=== PATIENT | female | born 1960 | race African-American/Black ===

== ENCOUNTER → 2019-02-08 | Day surgery (SDC) | payer MEDICARE ==
[~2019-02-08] MED LIST: AMLO10TA8 PO; CARV12.511 PO; DARBEPOETIN ALFA IN POLYSORBAT SQ; DEXAMETHASONE SOD PHOS 4 MG/ML VIAL ONE; HEPARIN SODIUM 5,000 UNIT in IV NORMAL SALINE 500ML BAG 500 ML IRR ONE; HEPARIN for IV BOLUS 10,000 UNIT/10 ML VIAL. ONE; HYDROmorphone 2 MG/ML VIAL IV PRN; INSU100C SQ; INSU100I13 SQ; IV NORMAL SALINE 1000ML BAG 1,000 ML IV SCH; IV RINGERS,LACTATED 1000ML 1,000 ML IV SCH; LIDOCAINE 1% 20 ML VIAL. ONE; LIDOCAINE 1% PF 2 ML VIAL. ID PRN; LIDOCAINE 2% PF 5 ML VIAL. ONE; MIDAZOLAM HCL/PF 2 MG/2 ML VIAL. ONE; MORPHINE SULFATE 2 MG/ML VIAL. IV PRN; ONDANSETRON PF 4 MG/2 ML VIAL. IV PRN; ONDANSETRON PF 4 MG/2 ML VIAL. ONE; PAPAVERINE 60 MG/2 ML VIAL FOR OR ONLY. ONE; POVIDONE-IODINE 10% TOPICAL OINTMENT 28GM TUBE. TP ONE; PROCHLORPERAZINE 10 MG/2 ML VIAL. IV PRN; PROPOFOL 20 ML IV ONE; SCOPOLAMINE 1.5MG PATCH. TD SCH; SURGICEL FIBRILLAR 1X2 EACH. ONE; THROMBIN TOPICAL 5,000 UNIT VIAL. ONE; VANC500V PO; ceFAZolin 2GM PREMIX 2 GM/50 ML BAG IV ONE; fentaNYL PF VIAL 100 MCG/2 ML VIAL IV PRN; fentaNYL PF VIAL 100 MCG/2 ML VIAL ONE
[2019-02-08 10:09] LABS: BASO # 0.1 x10^3/uL (0.0-0.2); BASO % 1 % (0-3); EOS # 0.4 x10^3/uL (0.0-0.7); EOS % 5 % (0-3); HEMATOCRIT 23.4 % (36.0-47.0); HEMOGLOBIN 7.2 g/dL (12.0-15.5); LYMPH # 0.9 x10^3/uL (1.0-4.8); LYMPH % 12 % (24-48); MEAN CORPUSCULAR HEMOGLOBIN 23 pg (25-35); MEAN CORPUSCULAR HGB CONC 31 g/dL (31-37); MEAN CORPUSCULAR VOLUME 75 fL (79-100); MONO # 0.4 x10^3/uL (0.0-1.1); MONO % 5 % (0-9); NEUT % 78 % (31-73); PLATELET COUNT 219 x10^3/uL (140-400); RED CELL DISTRIBUTION WIDTH 14.2 % (11.5-14.5); WHITE BLOOD COUNT 7.7 x10^3/uL (4.0-11.0)
[2019-02-08 10:30] LABS: CALCIUM 7.9 mg/dL (8.5-10.1); CREATININE 2.8 mg/dL (0.6-1.0); GFR 21.2; POTASSIUM 3.6 mmol/L (3.5-5.1)
--- NOTE | 2019-02-08 14:49 | DISCH ---
DISCHARGE INSTRUCTIONS Condition on Discharge Condition on Discharge: Stable Activity After Discharge Activity Instructions for Disc: Activity as tolerated Bathing Instructions: Shower-keep dressing dry (Ok to shower over incisions in 2 days) Driving Instructions after Dis: Do not drive Weight Bearing Status after Di: As tolerated Diet after Discharge Diet after Discharge: Renal Dialysis, Diabetic No Calorie Level Wound Incision Care Wound/Incision Care: Ice to area for comfort, Change dressing (keep dressings clean and dry. Keep incisions clean and dry) Checks after Discharge Checks after discharge: Check blood press - daily, Check blood sugar, ac/hs, Weigh Yourself Daily Contacting the DR. after DC Call your doctor for: If your condition worsens (fever > 100, odor, drainage, increasing redness from incisions) Follow-Up Follow up with: Follow up with DR. Moreno 03/07/19 at 1111. [address], IMANI lisa Treatment/Equipment after DC Adaptive Equipment Issued: Wheelchair Discharge Respiratory Equipmen: Oxygen SARAH SERRATO Feb 08, 2019 14:49
--- NOTE | 2019-02-08 14:56 | PDOC ---
BRIEF OPERATIVE NOTE Date: Feb 08, 2019 Pre-Op Diagnosis End stage renal disease on dialysis Post-Op Diagnosis End stage renal disease on dialysis Procedure Performed Right upper arm arteriovenous graft placement Surgeon Cholo Moreno MD Health Coach BRIAN Crandall Anesthesia Type: General Blood Loss 50mL Specimens Obtained None Complications None Operative Note See detailed op note SARAH SERRATO Feb 08, 2019 14:56
[2019-02-08 15:45] VITALS: BP 168/70
--- NOTE | 2019-02-08 16:32 | OP ---
DATE OF SURGERY: 02/08/2019 PREOPERATIVE DIAGNOSIS: End-stage renal disease requiring hemodialysis. POSTOPERATIVE DIAGNOSIS: End-stage renal disease requiring hemodialysis. OPERATION PERFORMED: Placement of right arm loop arteriovenous shunt using tapered 4-7 Propaten [place] graft. SURGEON: Anjana Moreno M.D. WILDLIFE PROTECTOR: BRIAN Crandall. Danya was required because of the patient's body habitus and the need for an tourist information assistant for retraction, aid and completing the anastomosis. Without a qualified tourist information assistant, the procedure would have taken much longer and the outcome may not have been as satisfactory. ANESTHESIA: General. INDICATIONS: This is a 58-year-old female with end-stage renal disease. She has had a left hemisphere stroke with right hemiparesis. At first, I was unable to expose the upper arm for consideration of placement of the graft and therefore we discussed placement of the graft in the left arm, which is her nonparalyzed arm; however, when we got into the operating room and after anesthesia, the arm was able to be abducted such that an upper arm graft could be placed and therefore that was performed. This will be the best for obvious reasons. The loop graft has an anterior component, which would be accessible for dialysis. She does, however, have to consent forms and has been consented for both right and left arm. OPERATIVE FINDINGS: The patient had an excellent deep brachial vein. The brachial artery was of adequate caliber, but had some concentric calcification. Following placement of the shunt, there was excellent flow through the graft, which again is oriented in a horseshoe configuration with both the arterial and venous anastomoses in the upper axilla. DESCRIPTION OF PROCEDURE: The patient's right arm was prepped and draped and retracted and abducted for positioning. The patient's arm was prepped and draped and a timeout was called. An incision was made in the axilla and the brachial artery and deep brachial veins were both dissected and the findings above. A 4-7 graft was then tunneled in a subcutaneous fashion with the tapered in to be sutured to the brachial artery and the large end to be sutured to the deep brachial vein. The patient was given 3000 units of heparin. The tunneling was done with the aid of a most curved tunneler. After positioning of the graft into the subcutaneous tunnel, the brachial artery was occluded proximally and distally. Because of the calcification, clamps had to be used. An arteriotomy was made in the anterior surface then tapered portion of the graft was sutured end-to-side using HS-7 Prolene. After completing anastomosis, there was less than optimal flow through the graft. Therefore, the anastomosis was taken down and redone. Following this, there was pulsatile flow through the graft. The graft was irrigated, retrograded with heparinized saline and clamped at the horseshoe portion where there was a counter incision. The large end of the graft was then sutured end-to-side to the deep brachial vein. A venotomy was made and the graft sutured end-to-side with HS-7 Prolene. Prior to completing the anastomosis, the graft was flushed appropriately. Flow was then restored. Wounds were then irrigated and closed in layers with absorbable suture, the skin with intracuticular Vicryl proximally. A small counter incision just above the elbow was closed with a running 4-0 nylon. Sterile dressings were applied. The patient tolerated the procedure well. All sponge and needle counts were reported as correct. ESTIMATED BLOOD LOSS: 50 mL. DRAINS: None. SPECIMEN: None. ANJANA MORENO MD DR: YAMINI/delroy JOB#: [id number] / [id number]
== END ==
LOC: SURG 08:20
PROVIDERS: ATTEND Surgery
DX: E11.22 Type 2 diabetes mellitus with diabetic chronic kidney disease (principal); N18.6 End stage renal disease; Z86.73 Personal history of transient ischemic attack (TIA), and cerebral infarction without residual deficits; Z98.890 Other specified postprocedural states; Z99.2 Dependence on renal dialysis; Z90.710 Acquired absence of both cervix and uterus; Z79.84 Long term (current) use of oral hypoglycemic drugs
CPT/HCPCS: 36415; 36830; 80048; 85025; A7015; C1768; J0690; J0696; J1100; J1644; J2001; J2405; J2704; J3010; J7040; J2250; J2440

== ENCOUNTER 2019-02-13 11:45 | Emergency (ER) | payer MEDICARE ==
[~2019-02-13] VITALS: Ht 165.1 cm; Wt 100.7 kg
[~2019-02-13 11:45] MED LIST changes: -DEXAMETHASONE SOD PHOS 4 MG/ML VIAL ONE; -HEPARIN SODIUM 5,000 UNIT in IV NORMAL SALINE 500ML BAG 500 ML IRR ONE; -HEPARIN for IV BOLUS 10,000 UNIT/10 ML VIAL. ONE; -HYDROmorphone 2 MG/ML VIAL IV PRN; -IV NORMAL SALINE 1000ML BAG 1,000 ML IV SCH; -IV RINGERS,LACTATED 1000ML 1,000 ML IV SCH; -LIDOCAINE 1% 20 ML VIAL. ONE; -LIDOCAINE 1% PF 2 ML VIAL. ID PRN; -LIDOCAINE 2% PF 5 ML VIAL. ONE; -MIDAZOLAM HCL/PF 2 MG/2 ML VIAL. ONE; -MORPHINE SULFATE 2 MG/ML VIAL. IV PRN; -ONDANSETRON PF 4 MG/2 ML VIAL. IV PRN; -ONDANSETRON PF 4 MG/2 ML VIAL. ONE; -PAPAVERINE 60 MG/2 ML VIAL FOR OR ONLY. ONE; -POVIDONE-IODINE 10% TOPICAL OINTMENT 28GM TUBE. TP ONE; -PROCHLORPERAZINE 10 MG/2 ML VIAL. IV PRN; -PROPOFOL 20 ML IV ONE; -SCOPOLAMINE 1.5MG PATCH. TD SCH; -SURGICEL FIBRILLAR 1X2 EACH. ONE; -THROMBIN TOPICAL 5,000 UNIT VIAL. ONE; -ceFAZolin 2GM PREMIX 2 GM/50 ML BAG IV ONE; -fentaNYL PF VIAL 100 MCG/2 ML VIAL IV PRN; -fentaNYL PF VIAL 100 MCG/2 ML VIAL ONE
--- NOTE | 2019-02-13 12:22 | PHYS DOC ---
Past Medical History Past Medical History: Diabetes-Type II, High Cholesterol, Hypertension, Stroke Past Surgical History: Other Additional Past Surgical Histo: BILATERAL 5TH TOE AMPUTATION Alcohol Use: None Drug Use: None Adult General Chief Complaint Chief Complaint: LOWER EXT PAIN HPI HPI Patient is a 58 year old with a history of end-stage renal disease on dialysis presents to ED complaining of right hip pain. Patient is wheelchair-bound. Patient has a history of chronic lymphedema and wounds to right foot. Patient states she is able to bear weight. Patient has home healthcare at home to dress and take care of the wound. States she was standing to change herself and she fell down into the chair and injured her right hip. Describes the pain as sharp. Rates the pain as 4 out of 10. Patient was just released 2 days ago from the hospital for wound treatment. Patient states her wound has been improving. No change in drainage. Denies fever, chills, nausea/vomiting, weakness, bowel/bladder changes, paresthesias, chest pain, shortness of breath, head/neck injury, symptoms prior to fall. Review of Systems Review of Systems Constitutional: Denies fever or chills [] Eyes: Denies change in visual acuity, redness, or eye pain [] HENT: Denies nasal congestion or sore throat [] Respiratory: Denies cough or shortness of breath [] Cardiovascular: No additional information not addressed in HPI [] GI: Denies abdominal pain, nausea, vomiting, bloody stools or diarrhea [] : Denies dysuria or hematuria [] Musculoskeletal: Complains of hip pain. Denies back pain. Integument: Denies rash or skin lesions [] Neurologic: Denies headache, focal weakness or sensory changes [] All other systems were reviewed and found to be within normal limits, except as documented in this note. Allergies Allergies Allergies Coded Allergies Type Severity Reaction Last Updated Verified I S O L A T I O N *CONTACT* Allergy Unknown 02/08/19 Yes acetaminophen Adverse Reaction Intermediate Nausea 02/08/19 Yes hydrocodone Adverse Reaction Intermediate Nausea 02/08/19 Yes Physical Exam Physical Exam Constitutional: Well developed, well nourished, no acute distress, non-toxic appearance. [] HENT: Normocephalic, atraumatic Eyes: PERRLA, EOMI, conjunctiva normal, no discharge. [] Neck: Normal range of motion, no tenderness, supple, no stridor. [] Cardiovascular:Heart rate regular rhythm, no murmur [] Lungs & Thorax: Bilateral breath sounds clear to auscultation [] Abdomen: Bowel sounds normal, soft, no tenderness, no masses, no pulsatile masses. [] Skin: Warm, dry, no erythema, no rash. [] Back: No tenderness, no CVA tenderness. [] Extremities: mild right hip tenderness, no cyanosis, no clubbing, NV intact. no edema. chronic lower leg lymphedema. multiple bulous lesions. Wound dressing dry and intact. Neurologic: Alert and oriented X 3, right sided extremity weakness at baseline. Psychologic: Affect normal, judgement normal, mood normal. [] Current Patient Data Vital Signs Vital Signs Date Time Temp Pulse Resp B/P (MAP) Pulse Ox O2 Delivery O2 Flow Rate FiO2 02/13/19 15:15 88 20 132/72 (92) 100 Room Air 02/13/19 12:14 97.7 97.7 EKG EKG [] Radiology/Procedures Radiology/Procedures []PROCEDURE: HIP RIGHT 2V WITH PELVIS AP view of the pelvis and two-view view of right hip Clinical indications: Patient fell 3 days ago. Right hip pain. FINDINGS: No acute fracture or dislocation or lytic process is seen. The hip joints are symmetric. No significant arthritic change is seen. No diastases of the symphysis pubis or either SI joint is seen. Calcified atheromatous arterial changes are seen bilaterally. IMPRESSION: No acute osseous abnormality. Course & Med Decision Making Course & Med Decision Making Pertinent Labs and Imaging studies reviewed. (See chart for details) []Discussed imaging findings with patient. Patient's pain improved in the ED. D iscussed symptomatic treatment and reasons to return to the ED. Patient understands and agrees with plan. Patient has follow-up with Dr. Henao on March 07. Discussed signs and symptoms to return to the ED. Patient understands and agrees with plan. Patient has had trouble getting her medications. Social work was consulted patient in order to assist in her getting her medications as needed. Dragon Disclaimer Dragon Disclaimer This electronic medical record was generated, in whole or in part, using a voice recognition dictation system. Departure Departure Impression: Primary Impression: Hip pain Disposition: HOME, SELF-CARE Condition: IMPROVED Referrals: UNKNOWN PCP NAME (PCP) ANJANA STEWART II, MD Patient Instructions: Hip Pain NAYAN KING Feb 13, 2019 12:22
--- NOTE | 2019-02-13 12:40 | RAD ---
AP view of the pelvis and two-view view of right hip Clinical indications: Patient fell 3 days ago. Right hip pain. FINDINGS: No acute fracture or dislocation or lytic process is seen. The hip joints are symmetric. No significant arthritic change is seen. No diastases of the symphysis pubis or either SI joint is seen. Calcified atheromatous arterial changes are seen bilaterally. IMPRESSION: No acute osseous abnormality. Electronically signed by: Alexander Chan MD (02/13/2019 12:37 PM) [place] [id number]
[2019-02-13 15:15] VITALS: BP 132/72
== END 2019-02-13 15:42 | disposition home or self-care (01) ==
LOC: ER 11:45
DX: M25.551 Pain in right hip (principal); E78.00 Pure hypercholesterolemia, unspecified; I10 Essential (primary) hypertension; E11.9 Type 2 diabetes mellitus without complications; Z86.73 Personal history of transient ischemic attack (TIA), and cerebral infarction without residual deficits; Z88.5 Allergy status to narcotic agent; Z88.6 Allergy status to analgesic agent; Z91.041 Radiographic dye allergy status
CPT/HCPCS: 73502; 99284

== ENCOUNTER 2019-02-21 10:25 | Emergency (ER) | payer MEDICARE ==
[~2019-02-21] VITALS: Ht 170.2 cm; Wt 95.3 kg
--- NOTE | 2019-02-21 10:45 | PHYS DOC ---
Past Medical History Past Medical History: Diabetes-Type II, High Cholesterol, Hypertension, Renal Failure, Stroke Past Surgical History: Other Additional Past Surgical Histo: BILATERAL 5TH TOE AMPUTATION, RIGHT CHEST DIAL YSIS PORT, RUE SHUNT Alcohol Use: None Drug Use: None Adult General Chief Complaint Chief Complaint: OTHER COMPLAINTS HPI HPI Patient is a 58-year-old female, with several chronic medical problems including ESRD, who presents to the emergency department via EMS. The patient states that her chief complaint is that she has not had dialysis since , and has no transportation to dialysis. She states that her daughter had been taking her, but is no longer able to take her. She does not feel short of breath, and otherwise feels well at her baseline. She was diagnosed with Clostridium difficile during an hospital visit this facility last month, but states that she never got her prescribed antibiotics filled, and has been having intermittent diarrhea, on and off since that time. She denies fevers, chest pain, shortness of breath. There are no alleviating or exacerbating factors to her condition. Review of Systems Review of Systems Constitutional: Denies fever or chills [] Eyes: Denies change in visual acuity, redness, or eye pain [] HENT: Denies nasal congestion or sore throat [] Respiratory: Denies cough or shortness of breath [] Cardiovascular:The patient denies any shortness of breath, chest pain, palpitations, or orthopnea [] GI: Denies abdominal pain, nausea, vomiting, bloody stools or diarrhea [] : Denies dysuria or hematuria [] Musculoskeletal: Denies back pain or joint pain [] Integument: Denies rash or skin lesions [] Neurologic: Denies headache, focal weakness or sensory changes [] Endocrine: Denies polyuria or polydipsia [] All other systems were reviewed and found to be within normal limits, except as documented in this note. Allergies Allergies Allergies Coded Allergies Type Severity Reaction Last Updated Verified I S O L A T I O N *CONTACT* Allergy Unknown 02/08/19 Yes acetaminophen Adverse Reaction Intermediate Nausea 02/08/19 Yes hydrocodone Adverse Reaction Intermediate Nausea 02/08/19 Yes Physical Exam Physical Exam PHYSICAL EXAM: CONSTITUTIONAL: Well developed, well nourished HEAD: normocephalic, atraumatic EENT: PERRL, EOMI. Conjunctivae normal color, sclerae non-icteric; moist mucous membranes. NECK: Supple, non-tender; no meningismus. LUNGS: Lungs CTA, breathing even and unlabored. Normal air movement. HEART: Regular rate and rhythm, no murmur CHEST: No deformity; non-tender ABDOMEN: The abdomen is soft, and non-tender, no masses or bruits. EXTREM: Normal ROM; no deformity, no calf tenderness. Normal pulses palpable in all extremities. There is severe bilateral lymphedema bilaterally, with chronic appearing wounds on the legs. SKIN: No rash; no diaphoresis NEURO: Alert; normal speech and cognition; CN's grossly intact; strength grossly intact without focal deficit. BACK: No CVA TTP. Current Patient Data Vital Signs Vital Signs Date Time Temp Pulse Resp B/P (MAP) Pulse Ox O2 Delivery O2 Flow Rate FiO2 02/21/19 10:34 97.9 86 16 131/53 (79) 100 Room Air 97.9 Lab Values Laboratory Tests Test 02/21/19 11:10 White Blood Count 11.3 x10^3/uL (4.0-11.0) H Red Blood Count 3.49 x10^6/uL (3.50-5.40) L Hemoglobin 7.9 g/dL (12.0-15.5) L Hematocrit 26.3 % (36.0-47.0) L Mean Corpuscular Volume 75 fL (79-100) L Mean Corpuscular Hemoglobin 23 pg (25-35) L Mean Corpuscular Hemoglobin Concent 30 g/dL (31-37) L Red Cell Distribution Width 14.7 % (11.5-14.5) H Platelet Count 316 x10^3/uL (140-400) Neutrophils (%) (Auto) 75 % (31-73) H Lymphocytes (%) (Auto) 14 % (24-48) L Monocytes (%) (Auto) 6 % (0-9) Eosinophils (%) (Auto) 5 % (0-3) H Basophils (%) (Auto) 0 % (0-3) Neutrophils # (Auto) 8.5 x10^3uL (1.8-7.7) H Lymphocytes # (Auto) 1.6 x10^3/uL (1.0-4.8) Monocytes # (Auto) 0.7 x10^3/uL (0.0-1.1) Eosinophils # (Auto) 0.5 x10^3/uL (0.0-0.7) Basophils # (Auto) 0.0 x10^3/uL (0.0-0.2) Platelet Estimate Adequate (ADEQUATE) Large Platelets Few Giant Platelets Occ Polychromasia Slight Hypochromasia Mod Basophilic Stippling Present Anisocytosis Slight Tear Drop Cells Occ Ovalocytes Few Schistocytes Occ Prothrombin Time 13.3 SEC (11.7-14.0) Prothrombin Time INR 1.0 (0.8-1.1) Sodium Level 141 mmol/L (136-145) Potassium Level 4.5 mmol/L (3.5-5.1) Chloride Level 103 mmol/L (98-107) Carbon Dioxide Level 28 mmol/L (21-32) Anion Gap 10 (6-14) Blood Urea Nitrogen 52 mg/dL (7-20) H Creatinine 7.2 mg/dL (0.6-1.0) H Estimated GFR (Cockcroft-Gault) 7.1 BUN/Creatinine Ratio 7 (6-20) Glucose Level 205 mg/dL (70-99) H Calcium Level 8.7 mg/dL (8.5-10.1) Total Bilirubin 0.3 mg/dL (0.2-1.0) Aspartate Amino Transferase (AST) 10 U/L (15-37) L Alanine Aminotransferase (ALT) 8 U/L (14-59) L Alkaline Phosphatase 144 U/L (46-116) H Total Protein 8.1 g/dL (6.4-8.2) Albumin 2.8 g/dL (3.4-5.0) L Albumin/Globulin Ratio 0.5 (1.0-1.7) L Laboratory Tests 02/21/19 11:10 Laboratory Tests 02/21/19 11:10 EKG EKG Normal sinus rhythm at a rate of 82 beats for minute, leftward axis, normal intervals, poor anterior R-wave progression without acute ischemic ST/T changes. Normal morphology of the P waves are present, without peaking.[] Radiology/Procedures Radiology/Procedures [PROCEDURE: PORTABLE CHEST 1V PORTABLE CHEST 1V Clinical indications: Shortness of breath. COMPARISON: January 27, 2019. Findings: No acute lung infiltrate or pleural effusion or pulmonary edema or lung mass or pneumothorax is seen. The heart size, pulmonary vasculature, mediastinum and both erica are stable. Hemodialysis catheter is unchanged in position. Impression: No acute radiographic abnormality is seen. ] Course & Med Decision Making Course & Med Decision Making Pertinent Labs and Imaging studies reviewed. (See chart for details) []Patient's hemoglobin is not significantly different compared to her prior values. 12:30 PM: The patient's condition remains stable. I discussed the case with Dr. Mercado, nephrology, and we both agree that the patient does not need emergent dialysis at this time. Her biggest issue is a social patient, due to lack of transportation to her dialysis center. I have paged social work to help calm see the patient and see if we can arrange transportation patient from home. 1:55 PM: The patient's condition remains a stable. Social work has met with the patient, and has given her applications for ride assistance programs, and also coordinated with the social work administrator at the dialysis center. She also verified that the patient's children will be available to help her in the short-term until she is able to arrange a more permanent solution. Medically she is stable at this time does not require emergent dialysis or hospitalizations. Dragon Disclaimer Dragon Disclaimer This electronic medical record was generated, in whole or in part, using a voice recognition dictation system. Departure Departure Impression: Primary Impression: ESRD (end stage renal disease) Disposition: 01 HOME, SELF-CARE Condition: STABLE Referrals: ISABELL CHUA MD, VENU S MD Patient Instructions: Dialysis, Dialysis Diet ARCELIA PEREIRA MD Feb 21, 2019 10:44
--- NOTE | 2019-02-21 11:18 | RAD ---
PORTABLE CHEST 1V Clinical indications: Shortness of breath. COMPARISON: January 27, 2019. Findings: No acute lung infiltrate or pleural effusion or pulmonary edema or lung mass or pneumothorax is seen. The heart size, pulmonary vasculature, mediastinum and both erica are stable. Hemodialysis catheter is unchanged in position. Impression: No acute radiographic abnormality is seen. Electronically signed by: Alexander hCan MD (02/21/2019 11:15 AM) [facility]
[2019-02-21 11:36] LABS: PROTHROMBIN TIME PATIENT 13.3 SEC (11.7-14.0)
[2019-02-21 11:44] LABS: CALCIUM 8.7 mg/dL (8.5-10.1); CREATININE 7.2 mg/dL (0.6-1.0); GFR 7.1; POTASSIUM 4.5 mmol/L (3.5-5.1)
[2019-02-21 11:50] LABS: ALBUMIN 2.8 g/dL (3.4-5.0); ALBUMIN/GLOBULIN RATIO 0.5 (1.0-1.7); TOTAL BILIRUBIN 0.3 mg/dL (0.2-1.0); TOTAL PROTEIN 8.1 g/dL (6.4-8.2)
[2019-02-21 12:00] LABS: BASO % 0 % (0-3); EOS # 0.5 x10^3/uL (0.0-0.7); EOS % 5 % (0-3); HEMATOCRIT 26.3 % (36.0-47.0); HEMOGLOBIN 7.9 g/dL (12.0-15.5); LYMPH # 1.6 x10^3/uL (1.0-4.8); LYMPH % 14 % (24-48); MEAN CORPUSCULAR HEMOGLOBIN 23 pg (25-35); MEAN CORPUSCULAR HGB CONC 30 g/dL (31-37); MEAN CORPUSCULAR VOLUME 75 fL (79-100); MONO # 0.7 x10^3/uL (0.0-1.1); MONO % 6 % (0-9); NEUT # 8.5 x10^3uL (1.8-7.7); NEUT % 75 % (31-73); PLATELET COUNT 316 x10^3/uL (140-400); RED BLOOD COUNT 3.49 x10^6/uL (3.50-5.40); RED CELL DISTRIBUTION WIDTH 14.7 % (11.5-14.5); WHITE BLOOD COUNT 11.3 x10^3/uL (4.0-11.0)
--- NOTE | 2019-02-21 12:12 | EKG ---
[facility] [address] [place] [address] Test Date: 2019-02-21 Test Time: 10:54:00 Pat Name: JANET KRAUS Department: Room: Gender: F Slab Tripper: : 1960 Requested By: ARCELIA PEREIRA Order Number: [id number] Reading MD: Measurements Intervals [place] Rate: 82 P: 60 DE: 134 QRS: 0 QRSD: 82 T: 56 QT: 378 QTc: 445 Interpretive Statements SINUS RHYTHM LEFTWARD AXIS QRS(T) CONTOUR ABNORMALITY CONSIDER ANTEROSEPTAL MYOCARDIAL DAMAGE POSSIBLY ABNORMAL ECG RI6.01 No previous ECG available for comparison
[2019-02-21 12:35] LABS: ANISOCYTOSIS SLIGHT; HYPOCHROMIA MOD; PLT ESTIMATE ADEQUATE (ADEQUATE); POLYCHROMASIA SLIGHT
[2019-02-21 12:36] LABS: OVALOCYTES FEW; SCHISTOCYTES OCC; TEAR DROP CELLS OCC
[2019-02-21 14:30] VITALS: BP 142/66
--- NOTE | 2019-02-21 16:32 | NUR ---
Late Entry: TIKA notified pt was missing HD due to lack of transportation. SW met with pt and spoke with her HD SW at [facility]. SW at [facility] reported she was not aware transportation was an issue. Pt reports her daughters are not able to provide transportation and demanded SW to arrange her transport. SW informed pt that transportation is always a challenge to HD patients and usually patients rely on family or their own transport unless they have Medicaid. Pt is provided with [employer] application and is aware to fill application, mail and present when called for an interview. After this discussion, pt then reported she has already applied for [employer] and is awaiting for an interview. SW encouraged pt to ask one of her daughters to take her to that interview so her application can be processed. Pt is aware until she is able to use [employer] ride or Medicaid becomes active she will need to ask other for assistance for transportation as there is no other resources in the community. Pt is provided with Ride [employer] and [place] Medicaid. Discussed with RN.
== END 2019-02-21 18:11 | disposition home or self-care (01) ==
LOC: ER 10:25
DX: I12.0 Hypertensive chronic kidney disease with stage 5 chronic kidney disease or end stage renal disease (principal); E11.22 Type 2 diabetes mellitus with diabetic chronic kidney disease; N18.6 End stage renal disease; E78.00 Pure hypercholesterolemia, unspecified; Z99.2 Dependence on renal dialysis; Z86.73 Personal history of transient ischemic attack (TIA), and cerebral infarction without residual deficits; Z91.041 Radiographic dye allergy status; Z88.6 Allergy status to analgesic agent; Z88.5 Allergy status to narcotic agent
CPT/HCPCS: 36415; 71045; 80053; 85025; 85610; 93005; 99285